=== PATIENT | male | born 1930 | race Caucasian/White ===

== ENCOUNTER → 2018-08-30 | Outpatient (CLI) | payer MEDICARE, OTHER ==
[~2018-08-30] MED LIST: ASP325T PO; BIMA2.5D4 OU; BRIM5DRO12 OD; COD1CAPS16 PO; METO100T5 PO; POTA20TA15 PO; PRV20T PO; TELM1TAB2 PO; [UNRECOGNIZED DRUG - OTHER]
== END ==
LOC: CARD 10:41
PROVIDERS: ATTEND Physician Assistant
DX: I25.10 Atherosclerotic heart disease of native coronary artery without angina pectoris (principal); I65.29 Occlusion and stenosis of unspecified carotid artery; I10 Essential (primary) hypertension; E78.5 Hyperlipidemia, unspecified; I34.0 Nonrheumatic mitral (valve) insufficiency
CPT/HCPCS: 93306

== ENCOUNTER → 2018-09-10 | Outpatient (CLI) | payer MEDICARE, OTHER ==
[2018-09-10] MEDS: CATHETER FLUSH 10 ML SYR IV PRN (08:01)
[2018-09-10 09:12] VITALS: BP 163/66
[2018-09-10 09:16] VITALS: BP 212/67
[2018-09-10 09:19] VITALS: BP 191/66
--- NOTE | 2018-09-10 16:06 | STRESS TEST ---
DATE OF SERVICE: 09/10/2018 EXERCISE MYOVIEW STRESS TEST REPORT Baseline heart rate is 61, baseline blood pressure 177/66. Baseline EKG is sinus rhythm with no ischemic changes. SUMMARY: The patient was injected with 10.50 mCi of technetium-99 Myoview and the resting images were obtained. Then, the patient started exercising with a baseline heart rate, blood pressure and EKG mentioned above. The patient was able to exercise for a total of 4 minutes on standard Lamine protocol, achieving maximum heart rate of 126, which is 94% of maximum expected heart rate. With peak exercise level, EKG was showing no significant ischemic changes. Blood pressure at peak was 216/62. During recovery, heart rate and blood pressure returned to baseline. During recovery, at peak stress level, a 31.1 mCi of technetium-99 Myoview were injected. The resting and stress images were reviewed and compared in the short axis, horizontal long axis, and vertical long axis views. Review of the images showed decreased uptake at the true apex anteroapical and inferoapical with no significant reversibility. SSS is 8, SDS 1, and TID value 1.01. On the gated images, the left ventricle appeared to be normal size with normal contractility. Calculated ejection fraction is 75%. CONCLUSION: 1. Good exercise tolerance, a total of 4 minutes on standard Lamine protocol, achieving 94% of maximum expected heart rate, total of 5.8 METs. 2. Negative exercise stress test by EKG criteria. 3. Hypertensive changes in response to exercise returned to baseline during recovery. 4. Fixed defect at the true apex inferoapical and anteroapical with no significant reversibility. 5. Normal left ventricular size with normal contractility. Calculated ejection fraction is 75%. Job ID: [id number] DocumentID: [id number] Dictated Date: 09/10/2018 12:42:19 Incident Response Consultant Date: 09/10/2018 16:06:24 Dictated By: ELDER ALVAREZ MD
== END ==
LOC: RAD 07:35
PROVIDERS: ATTEND Physician Assistant
DX: I25.10 Atherosclerotic heart disease of native coronary artery without angina pectoris (principal); I10 Essential (primary) hypertension; E78.5 Hyperlipidemia, unspecified
CPT/HCPCS: 78452; 93017

== ENCOUNTER 2019-03-15 12:06 | Emergency (ER) | payer MEDICARE, OTHER ==
[~2019-03-15] VITALS: Ht 177.8 cm; Wt 79.4 kg
--- NOTE | 2019-03-15 12:25 | ED Fall/Injury ---
General Chief Complaint: Trauma-Non Activation Stated Complaint: FALL Source: patient, family Exam Limitations: no limitations History of Present Illness Date Seen by Provider: March 15, 2019 Time Seen by Provider: 12:21 Initial Comments To ER doubly by with reports of a fall. He states that he tripped over a curb at home he was wearing glasses and the glasses broke and lacerated the right eyebrow. No loss of consciousness. He is on aspirin. No neck pain. Small abrasion to the right knee. Occurred: just prior to arrival Severity: moderate Injuries/Pain Location: head Context: tripped Loss of Consciousness: no loss of consciousness Associated Symptoms (Fall): No Headache, No Neck Pain Allergies and Home Medications Allergies Coded Allergies: Penicillins (Verified Allergy, Unknown, 07/20/16) Home Medications Aspirin 325 Mg Tab, 325 MG PO DAILY, (Reported) Bimatoprost 2.5 Ml Drops, 2.5 ML OU DAILY, (Reported) Brimonidine Tartrate 10 Ml Drops, 1 DROP OD DAILY, (Reported) BOTH EYES Hctz/Telmisartan 1 Each Tablet, 1 EACH PO DAILY, (Reported) Metoprolol Succinate 100 Mg Tab.sr.24h, 1 EACH PO DAILY, (Reported) Potassium Chloride 20 Meq Tab.prt.sr, 20 MEQ PO DAILY, (Reported) Pravastatin Sodium 20 Mg Tablet, 1 TAB PO DAILY, (Reported) Patient Home Medication List Home Medication List Reviewed: Yes Review of Systems Review of Systems Constitutional: see HPI Eyes: No Symptoms Reported Ears, Nose, Mouth, Throat: no symptoms reported Respiratory: no symptoms reported Cardiovascular: no symptoms reported Genitourinary: no symptoms reported Musculoskeletal: no symptoms reported Skin: no symptoms reported Psychiatric/Neurological: No Symptoms Reported Past Avikisj-Qrgtkh-Ssmmwi Hx Patient Social History Recent Foreign Travel: No Contact w/Someone Who Travel: No Physical Exam Vital Signs Vital Signs - First Documented 03/15/19 12:10 Temp 98.2 Pulse 68 Resp 20 B/P (MAP) 136/77 (96) Pulse Ox 95 Capillary Refill : Height, Weight, BMI Height: 5'10.00" Weight: 191lbs. 0.0oz. 86.074857ns; 27.4 BMI Method: General Appearance: WD/WN, no apparent distress HEENT: PERRL/EOMI, normal ENT inspection, other (there is a 1 cm laceration to the right lateral eyebrow at the inferior aspect of the eyebrow. Depth to the subcutaneous tissue.) Neck: non-tender, full range of motion; No tender lateral, No tender midline Respiratory: no respiratory distress, no accessory muscle use Gastrointestinal: normal bowel sounds, non tender, soft Extremities: normal range of motion, non-tender, other ( on coverage for 10 small abrasion to the anterior right knee without deformity swelling or effusion. No tenderness on palpation.) Neurologic/Psychiatric: alert, normal mood/affect, oriented x 3 Skin: normal color, warm/dry [place] Coma Score Best Eye Response: (4) Open Spontaneously Best Verbal Response: (5) Oriented Best Motor Response: (6) Obeys Commands [place] Total: 15 Procedures/Interventions Wound Location: Face Wound Length (cm): 0.5 Wound's Depth, Shape: linear, sub Q Wound Explored: clean Anesthesia: 1% Lidocaine Volume Anesthetic (ccs): 1 Suture: Ethlion Suture Size: 5-0 Number of Sutures: 2 Layer Closure?: 1 Number Deep Layer Sutures: 0 Progress Anesthetized with 0.5 mL lidocaine without epinephrine then scrubbed with chlorhexidine/Saline solution then closed with size 5-0m ethilon Progress/Results/Core Measures Results/Orders My Orders Orders - NATALIE DUMAS APRN Ct Head/Cervical Spine Wo (03/15/19 12:18) Dipht,Pertuss(Acell),Tet Adult (Boostrix (03/15/19 12:30) Vital Signs/I&O 03/15/19 12:10 Temp 98.2 Pulse 68 Resp 20 B/P (MAP) 136/77 (96) Pulse Ox 95 Departure Impression Primary Impression: Head injury Qualified Codes: S09.90XA - Unspecified injury of head, initial encounter Additional Impression: Facial laceration Qualified Codes: S01.81XA - Laceration without foreign body of other part of head, initial encounter Disposition: 01 HOME, SELF-CARE Condition: Stable Departure-Patient Inst. Decision time for Depature: 12:24 Referrals: TIANA FOUNTAIN MD (PCP/Family) Primary Care Physician Patient Instructions: Closed Head Injury, Laceration Repair With Stitches (DC) Add. Discharge Instructions: 1. Return to ER to have the stitches removed from the right eyebrow on about 5-7 days. Return to ER for any worsening symptoms such as headache confusion vomiting or anything else that worries you. You may shower leading water run over this starting this evening. All discharge instructions reviewed with patient and/or family. Voiced understanding. NATALIE DUMAS APRN March 15, 2019 12:25
[2019-03-15] MEDS ORDERED: TETANUS,DIPTH,PERTUSS P/F (BOOSTRIX) 0.5 ML VIAL IM ONE (12:30)
--- NOTE | 2019-03-15 13:01 | Diagnostic Imaging Report ---
PROCEDURE: CT head and CT cervical spine without contrast. TECHNIQUE: Multiple contiguous axial images were obtained through the brain and cervical spine without the use of intravenous contrast. Sagittal and coronal reformations through the cervical spine were then performed. Auto Exposure Controls were utilized during the CT exam to meet ALARA standards for radiation dose reduction. INDICATION: Fall with abrasions to the right eyebrow and cheek. No prior studies are available for comparison. CT head: Ventricles and sulci are appropriate for the patient's age. There is mild periventricular hypodensity noted consistent with senescent change. No sulcal effacement or midline shift is identified. No acute intra-axial or extra-axial hemorrhage is detected. Cisterns are patent. Visualized paranasal sinuses are clear. No depressed calvarial fractures are seen. IMPRESSION: No acute intracranial process is detected. CT cervical spine: Alignment is normal. There is multilevel degenerative disc and facet disease. Variable disc space narrowing and marginal spurring is noted. Broad-based disc/osteophyte complexes seen at C3-C4 level. There is also uncovertebral joint degenerative change. This does result in central canal and right neural foraminal narrowing. No fractures are identified. Prevertebral tissues are normal. Odontoid is intact. IMPRESSION: Cervical spondylosis. No acute bony abnormality is detected. Dictated by: Dictated on workstation # [id number]
[2019-03-15 13:15] VITALS: BP 136/77
== END 2019-03-15 13:17 | disposition home or self-care (01) ==
LOC: EDUNIT# 12:06 → ER 12:06
DX: S09.90XA Unspecified injury of head, initial encounter (principal); S01.111A Laceration without foreign body of right eyelid and periocular area, initial encounter; R40.2142 Coma scale, eyes open, spontaneous, at arrival to emergency department; R40.2252 Coma scale, best verbal response, oriented, at arrival to emergency department; R40.2362 Coma scale, best motor response, obeys commands, at arrival to emergency department; Z23 Encounter for immunization; Z88.0 Allergy status to penicillin; Z79.82 Long term (current) use of aspirin; W10.1XXA Fall (on)(from) sidewalk curb, initial encounter; W25.XXXA Contact with sharp glass, initial encounter; Y92.009 Unspecified place in unspecified non-institutional (private) residence as the place of occurrence of the external cause
CPT/HCPCS: 70450; 72125; 90471; 90715

== ENCOUNTER 2019-03-22 09:47 | Emergency (ER) | payer MEDICARE, OTHER ==
[~2019-03-22] VITALS: Ht 177.8 cm; Wt 81.6 kg
[2019-03-22 10:22] VITALS: BP 114/45
--- OUTSIDE RECORDS SUMMARY | 2019-03-22 13:37 | XMS REPORT | Continuity of Care Document ---
Author Organization Unknown Address Unknown Allergies Active Description Code Type Severity Reaction Onset Reported/Identified Relationship to Patient Clinical Status Yes Penicillins [id number] Drug Allergy Unknown N/A 07/20/2016 Medications There is no data. Problems Date Dx Coded Attending Type Code Diagnosis Diagnosed By 12/10/2014 KING RITTER Ot 278.01 12/10/2014 KING RITTER Ot 401.9 12/10/2014 KING RITTER Ot 414.00 12/10/2014 KING RITTER Ot 427.31 12/10/2014 KING RITTER Ot V85.41 07/20/2016 KING RITTER Ot I25.10 ATHSCL HEART DISEASE OF [place] CORONARY 07/20/2016 KING RITTER Ot I25.10 ATHSCL HEART DISEASE OF [place] CORONARY 07/21/2016 KING RITTER Ot I25.10 ATHSCL HEART DISEASE OF [place] CORONARY 07/21/2016 Ot 397.0 TRICUSPID VALVE DISEASE 07/21/2016 Ot 401.9 HYPERTENSION NOS 07/21/2016 Ot 414.00 CORON ATHEROSCLER NOS TYPE VESSEL, NATIV 07/21/2016 Ot 424.0 MITRAL VALVE DISORDER 07/21/2016 Ot 429.3 CARDIOMEGALY 07/21/2016 Ot 786.09 RESPIRATORY ABNORM NEC 07/21/2016 Ot 401.9 HYPERTENSION NOS 07/21/2016 Ot 414.00 CORON ATHEROSCLER NOS TYPE VESSEL, NATIV 07/21/2016 Ot 786.09 RESPIRATORY ABNORM NEC 07/21/2016 KING RITTER Ot 397.0 TRICUSPID VALVE DISEASE 07/21/2016 KING RITTER Ot 401.9 HYPERTENSION NOS 07/21/2016 KING RITTER Ot 414.00 CORON ATHEROSCLER NOS TYPE VESSEL, NATIV 07/21/2016 REYNA COOK KING K Ot 424.0 MITRAL VALVE DISORDER 07/21/2016 REYNA COOK, KING K Ot 427.31 ATRIAL FIBRILLATION 07/21/2016 REYNA COOK KING K Ot 278.01 MORBID OBESITY 07/21/2016 REYNA COOK KING K Ot 401.9 HYPERTENSION NOS 07/21/2016 REYNA COOK KING K Ot 414.00 CORON ATHEROSCLER NOS TYPE VESSEL, NATIV 07/21/2016 REYNA COOK, KING K Ot 427.31 ATRIAL FIBRILLATION 07/21/2016 REYNA COOK KING K Ot V85.41 BODY MASS INDEX 40.0-44.9, ADULT 07/21/2016 REYNA COOK KING K Ot I25.10 ATHSCL HEART DISEASE OF [place] CORONARY 07/21/2016 REYNA COOK KING K Ot E78.2 MIXED HYPERLIPIDEMIA 07/21/2016 REYNA COOK KING K Ot I10 ESSENTIAL (PRIMARY) HYPERTENSION 07/21/2016 REYNA COOK KING K Ot I25.10 ATHSCL HEART DISEASE OF [place] CORONARY 07/21/2016 REYNA COOK KING K Ot I65.23 OCCLUSION AND STENOSIS OF BILATERAL [place] 07/22/2016 REYNA COOK, KING K Ot E78.2 MIXED HYPERLIPIDEMIA 07/22/2016 REYNA COOK, KING K Ot I10 ESSENTIAL (PRIMARY) HYPERTENSION 07/22/2016 REYNA COOK KING K Ot I25.10 ATHSCL HEART DISEASE OF [place] CORONARY 07/22/2016 REYNA COOK, KING K Ot I65.23 OCCLUSION AND STENOSIS OF [place] 08/10/2016 REYNA COOK, KING K Ot E78.2 MIXED HYPERLIPIDEMIA 08/10/2016 REYNA COOK, KING K Ot I10 ESSENTIAL (PRIMARY) HYPERTENSION 08/10/2016 REYNA COOK, KING K Ot I25.10 ATHSCL HEART DISEASE OF [place] CORONARY 08/10/2016 REYNA COOK, KING K Ot I65.23 OCCLUSION AND STENOSIS OF [place] 08/30/2016 REYNA COOK KING K Ot E78.2 MIXED HYPERLIPIDEMIA 08/30/2016 ROA-LIZZY PA, KING K Ot I10 ESSENTIAL (PRIMARY) HYPERTENSION 08/30/2016 ROA-LIZZY PA, KING K Ot I25.10 ATHSCL HEART DISEASE OF [place] CORONARY 08/30/2016 ROA-LIZZY PA, KING K Ot I65.23 OCCLUSION AND STENOSIS OF [place]ATER[place] 09/21/2018 ROA-ILZZY PA, KING K Ot E78.5 HYPERLIPIDEMIA, UNSPECIFIED 09/21/2018 ROA-LIZZY PA, KING K Ot I10 ESSENTIAL (PRIMARY) HYPERTENSION 09/21/2018 ROA-LIZZY PA, KING K Ot I25.10 ATHSCL HEART DISEASE OF [place] CORONARY 09/21/2018 ROA-LIZZY PA, KING K Ot I34.0 NONRHEUMATIC MITRAL (VALVE) INSUFFICIENC 09/21/2018 ROA-LIZZY PA, KING K Ot I65.29 OCCLUSION AND STENOSIS OF UNSPECIFIED CA 10/05/2018 ROA-LIZZY PA, KING K Ot E78.5 HYPERLIPIDEMIA, UNSPECIFIED 10/05/2018 ROA-LIZZY PA, KING K Ot I10 ESSENTIAL (PRIMARY) HYPERTENSION 10/05/2018 ROA-LIZZY PA, KING K Ot I25.10 ATHSCL HEART DISEASE OF [place] CORONARY 10/18/2018 ROADANIEL PA, KING K Ot E78.5 HYPERLIPIDEMIA, UNSPECIFIED 10/18/2018 ROA-LIZZY PA, KING K Ot I10 ESSENTIAL (PRIMARY) HYPERTENSION 10/18/2018 ROADANIEL PA, KING K Ot I25.10 ATHSCL HEART DISEASE OF [place] CORONARY 10/18/2018 ROA-LIZZY PA, KING K Ot I34.0 NONRHEUMATIC MITRAL (VALVE) INSUFFICIENC 10/18/2018 ROA-LIZZY PA, KING K Ot I65.29 OCCLUSION AND STENOSIS OF UNSPECIFIED CA 10/18/2018 ROADANIEL PA, KING K Ot E78.5 HYPERLIPIDEMIA, UNSPECIFIED 10/18/2018 ROA-LIZZY PA, KING K Ot I10 ESSENTIAL (PRIMARY) HYPERTENSION 10/18/2018 ROADANIEL PA, KING K Ot I25.10 ATHSCL HEART DISEASE OF [place] CORONARY 12/05/2018 REYNA COOK, KING K Ot 397.0 TRICUSPID VALVE DISEASE 12/05/2018 RYENA COOK, KING K Ot 401.9 HYPERTENSION NOS 12/05/2018 REYNA COOK, KING K Ot 414.00 CORON ATHEROSCLER NOS TYPE VESSEL, NATIV 12/05/2018 REYNA COOK, KING K Ot 424.0 MITRAL VALVE DISORDER 12/05/2018 REYNA COOK, KING K Ot 427.31 ATRIAL FIBRILLATION 12/05/2018 REYNA COOK, KING K Ot 278.01 MORBID OBESITY 12/05/2018 REYNA COOK, KING K Ot 401.9 HYPERTENSION NOS 12/05/2018 REYNA COOK, KING K Ot 414.00 CORON ATHEROSCLER NOS TYPE VESSEL, NATIV 12/05/2018 REYNA COOK, KING K Ot 427.31 ATRIAL FIBRILLATION 12/05/2018 REYNA COOK KING K Ot V85.41 BODY MASS INDEX 40.0-44.9, ADULT 12/05/2018 REYNA COOK KING K Ot E78.2 MIXED HYPERLIPIDEMIA 12/05/2018 REYNA COOK KING K Ot I10 ESSENTIAL (PRIMARY) HYPERTENSION 12/05/2018 REYNA COOK KING K Ot I25.10 ATHSCL HEART DISEASE OF [place] CORONARY 12/05/2018 REYNA COOK KING K Ot I65.23 OCCLUSION AND STENOSIS OF [place] 12/05/2018 REYNA COOK KING K Ot E78.5 HYPERLIPIDEMIA, UNSPECIFIED 12/05/2018 REYNA COOK KING K Ot I10 ESSENTIAL (PRIMARY) HYPERTENSION 12/05/2018 REYNA COOK KING K Ot I25.10 ATHSCL HEART DISEASE OF [place] CORONARY 12/05/2018 REYNA COOK KING K Ot I34.0 NONRHEUMATIC MITRAL (VALVE) INSUFFICIENC 12/05/2018 KING RITTER Ot I65.29 OCCLUSION AND STENOSIS OF UNSPECIFIED CA 12/05/2018 REYNA COOK KING K Ot E78.5 HYPERLIPIDEMIA, UNSPECIFIED 12/05/2018 REYNA COOK, KING K Ot I10 ESSENTIAL (PRIMARY) HYPERTENSION 12/05/2018 REYNA COOK, KING K Ot I25.10 ATHSCL HEART DISEASE OF [place] CORONARY 03/15/2019 REYNA COOK, KING K Ot 397.0 TRICUSPID VALVE DISEASE 03/15/2019 REYNA COOK, KING K Ot 401.9 HYPERTENSION NOS 03/15/2019 REYNA COOK, KING K Ot 414.00 CORON ATHEROSCLER NOS TYPE VESSEL, NATIV 03/15/2019 REYNA COOK, KING K Ot 424.0 MITRAL VALVE DISORDER 03/15/2019 REYNA COOK, KING K Ot 427.31 ATRIAL FIBRILLATION 03/15/2019 REYNA COOK KING K Ot 278.01 MORBID OBESITY 03/15/2019 REYNA COOK, KING K Ot 401.9 HYPERTENSION NOS 03/15/2019 REYNA COOK, KING K Ot 414.00 CORON ATHEROSCLER NOS TYPE VESSEL, NATIV 03/15/2019 REYNA COOK, KING K Ot 427.31 ATRIAL FIBRILLATION 03/15/2019 REYNA COOK, KING K Ot V85.41 BODY MASS INDEX 40.0-44.9, ADULT 03/15/2019 REYNA COOK KING K Ot E78.2 MIXED HYPERLIPIDEMIA 03/15/2019 REYNA COOK KING K Ot I10 ESSENTIAL (PRIMARY) HYPERTENSION 03/15/2019 REYNA COOK KING K Ot I25.10 ATHSCL HEART DISEASE OF [place] CORONARY 03/15/2019 REYNA COOK KING K Ot I65.23 OCCLUSION AND STENOSIS OF [place]ILATER[place] 03/15/2019 REYNA COOK KING K Ot E78.5 HYPERLIPIDEMIA, UNSPECIFIED 03/15/2019 REYNA COOK KING K Ot I10 ESSENTIAL (PRIMARY) HYPERTENSION 03/15/2019 KING RITTER K Ot I25.10 ATHSCL HEART DISEASE OF [place] CORONARY 03/15/2019 KING RITTER Ot I34.0 NONRHEUMATIC MITRAL (VALVE) INSUFFICIENC 03/15/2019 KING RITTER K Ot I65.29 OCCLUSION AND STENOSIS OF UNSPECIFIED CA 03/15/2019 KING RITTER Ot E78.5 HYPERLIPIDEMIA, UNSPECIFIED 03/15/2019 KING RITTER Ot I10 ESSENTIAL (PRIMARY) HYPERTENSION 03/15/2019 KING RITTER Ot I25.10 ATHSCL HEART DISEASE OF [place] CORONARY 03/19/2019 NATALIE DUMAS APRN Ot R40.2142 COMA SCALE, EYES OPEN, SPONTANEOUS, EMR 03/19/2019 NATALIE DUMAS APRN Ot R40.2252 COMA SCALE, BEST VERBAL RESPONSE, ORIENT 03/19/2019 NATALIE DUMAS APRN Ot R40.2362 COMA SCALE, BEST MOTOR RESPONSE, OBEYS C 03/19/2019 NATALIE DUMAS APRN Ot S01.111A LACERATION W/O FB OF RIGHT EYELID AND PE 03/19/2019 NATALIE DUMAS APRN Ot S09.90XA UNSPECIFIED INJURY OF HEAD, INITIAL ENCO 03/19/2019 NATALIE DUMAS APRN Ot W10.1XXA FALL (ON)(FROM) SIDEWALK CURB, INITIAL E 03/19/2019 NATALIE DUMAS APRN Ot W25.XXXA CONTACT WITH [place], INITIAL ENCOUN 03/19/2019 NATALIE DUMAS APRN Ot Y92.[address] IN UNSP NON-INSTITUT (PRIVATE 03/19/2019 NATALIE DUMAS APRN Ot Z23 ENCOUNTER FOR IMMUNIZATION 03/19/2019 NATALIE DUMAS APRN Ot Z79.82 MCC (CURRENT) USE OF ASPIRIN 03/19/2019 NATALIE DUMAS APRN Ot Z88.0 ALLERGY STATUS TO PENICILLIN Procedures There is no data. Results There is no data. Encounters ACCT No. Visit Date/Time Discharge Status Pt. Type Provider Facility Loc./Unit Complaint [id number] 03/15/2019 12:06:00 03/15/2019 13:17:00 DIS Outpatient NATALIE DUMAS APRN [facility] ER FALL [id number] 09/10/2018 07:35:00 09/10/2018 23:59:59 CLS Outpatient KING RITTER [facility] CARD CAD [id number] 07/31/2018 15:16:00 07/31/2018 23:59:59 CLS Outpatient KING RITTER [facility] CAD [id number] 07/20/2016 09:47:00 07/20/2016 23:59:59 CLS Outpatient KING RITTER [facility] CAD,CVA,HTN,HLP [id number] 04/14/2014 08:14:00 04/14/2014 23:59:59 CLS Outpatient KING RITTER [facility] CAD,CVA,CAROTID STENOSIS [id number] 04/09/2014 07:46:00 04/09/2014 23:59:59 CLS Outpatient KING RITTER [facility] CAD,CVA,CAROTID STENOSIS [id number] 07/21/2016 10:10:00 Document Registration [id number] 02/29/2012 07:23:00 Document Registration [id number] 02/09/2012 09:41:00 Document Registration
== END 2019-03-22 10:22 | disposition home or self-care (01) ==
LOC: EDUNIT# 09:47 → ER 09:48
DX: S01.112D Laceration without foreign body of left eyelid and periocular area, subsequent encounter (principal); Z88.0 Allergy status to penicillin; Z79.82 Long term (current) use of aspirin; X58.XXXD Exposure to other specified factors, subsequent encounter